=== PATIENT | male | born 1935 | race Caucasian/White ===

== ENCOUNTER 2017-10-18 16:48 | Inpatient (IN) | payer MEDICARE ==
[~2017-10-18] VITALS: Ht 170.2 cm; Wt 73.0 kg
[2017-10-19] MEDS ORDERED: DOCU-141 PO (13:16)
[2017-10-19] MEDS ORDERED: AMLO2.5T2 PO (13:16)
[2017-10-19] MEDS ORDERED: LISI40TA4 PO (13:16)
[2017-10-19] MEDS ORDERED: ACET-2154 PO (13:16)
[2017-10-19] MEDS ORDERED: GLIM2TAB2 PO (13:16)
[2017-10-19] MEDS ORDERED: LEVE500T9 PO (13:16)
[2017-10-19] MEDS ORDERED: BUPI5VIA IJ (13:16)
[2017-10-19] MEDS ORDERED: BACI30OI9 TP (13:16)
[2017-10-19] MEDS ORDERED: PRAV40TA PO (13:16)
[2017-10-19] MEDS: BLOOD SUGAR DIAGNOSTIC 1 EACH STRIP VI SCH ×3 (13:30→21:02)
[2017-10-19] MEDS ORDERED: Z GUARD REMEDY PASTE 57 GM TUBE TOP PRN (13:30)
[2017-10-19] MEDS ORDERED: DEXTROSE 50% 50 ML DISP.SYRIN IV PRN (13:30)
[2017-10-19 13:36] VITALS: BP 112/57
--- NOTE | 2017-10-19 14:33 | NUR ---
pt seen on admission. pt arrived from [facility] through ambulance. vitals assessed see glass etcher short term on interventions. received report from [facility]. pt signed all documentation including belongings list. no hearing aids upon admission. pt seen by md mabry. states he will continue all meds that were reconciled. pt assessed. pt is receptive to speech, alert and oriented x 3. pt showed signs of aphasia. neuro check done due to tbi. pt has rigid left arm. and weakness on both legs. incision site checked. no drainage noted. lisa intact. pictures taken and placed in chart. pt has sinus bradycadia but stable. pt has shallow breathes but tolerates room air. no edema nor redness back upon assessment. pt placed on ccho diet. mrsa swab done and placed in lab. will continue to monitor for complications.
--- NOTE | 2017-10-19 15:43 | NUR ---
md wants to continue all meds from [facility] med recon done and placed in chart. sent to pharmacy.
[2017-10-19] MEDS: INSULIN REGULAR, HUMAN 300 UNIT/3 ML VIAL SQ PRN ×2 (17:21→21:01)
[2017-10-19] MEDS ORDERED: ACETAMINOPHEN 325 MG TABLET PO PRN (18:00)
--- NOTE | 2017-10-19 18:48 | NUR ---
pt stable throughout the day. pt continue to be sleeping interminently throuhgout shift. neuro checks done to check if pt is having any changes neurologically. applied neosporin cream on head. pt given keppra and insulin per coverage. applied dvt pumps. will endorse to broach trouble shooter nurse.
[2017-10-19] MEDS: LEVETIRACETAM 500 MG TABLET PO SCH (18:56)
[2017-10-19] MEDS: BACITRACIN ZINC OINT 15 GM TUBE TP SCH (18:57)
--- NOTE | 2017-10-19 19:40 | NUR ---
Pt resting comfortably in bed. AAO x4. No acute distress noted. On room air and tolerating well, shallow breathing noted. No c/o SOB. No c/o pain or discomfort at this time. Right arm noted to be stronger than the left arm. Will perform neuro check. Safety measures maintained. Call light and personal belongings within reach. Will continue to monitor.
[2017-10-19] MEDS: DOCUSATE SODIUM 100 MG CAPSULE PO PRN (20:57)
[2017-10-19] MEDS: ATORVASTATIN 10 MG TABLET PO SCH (20:57)
[2017-10-19 21:38] VITALS: BP 129/55
--- NOTE | 2017-10-20 05:35 | NUR ---
Pt slept comfortably at night. VSS. Meds and insulin coverage given per MD's order. Pt compliant. Performed neuro check. No significant changes noted from baseline upon admission. All needs attended to promptly. Will endorse to day shift RN. Continue to monitor.
[2017-10-20] MEDS: BLOOD SUGAR DIAGNOSTIC 1 EACH STRIP VI SCH ×4 (06:49→20:47)
[2017-10-20 07:06] LABS: BASOPHILS % (AUTO) 0.4 % (0.0-2.0); EOSINOPHILS # (AUTO) 0.2 K/uL (0.0-0.7); EOSINOPHILS % (AUTO) 2.8 % (0.0-7.0); HEMATOCRIT 38.2 % (36.7-47.1); HEMOGLOBIN 12.8 g/dL (12.5-16.3); LYMPHOCYTES # (AUTO) 1.4 K/uL (20.0-40.0); LYMPHOCYTES % (AUTO) 21.8 % (20.5-51.5); MEAN CORPUSCULAR HEMOGLOBIN 29.6 uug (23.8-33.4); MEAN CORPUSCULAR HGB CONC 34 g/dL (32.5-36.3); MEAN CORPUSCULAR VOLUME 88.4 fL (73.0-96.2); MONOCYTES # (AUTO) 0.8 K/uL (2.0-10.0); MONOCYTES % (AUTO) 11.5 % (0.0-11.0); NEUTROPHILS # (AUTO) 4.2 K/uL (1.8-8.9); NEUTROPHILS % (AUTO) 63.5 % (38.5-71.5); PLATELET COUNT (AUTO) 117 K/uL (152-348); RED BLOOD CELL COUNT(AUTO) 4.33 MIL/uL (4.06-5.63); WHITE BLOOD COUNT (AUTO) 6.6 K/uL (3.6-10.2)
[2017-10-20 07:18] LABS: CARBON DIOXIDE 23 mmol/L (21-32); CHLORIDE 101 mmol/L (98-107); CHOLESTEROL 112 mg/dL (<200); GLUCOSE 126 mg/dL (74-106); HDL CHOLESTEROL 21 mg/dL (40-60); MAGNESIUM 1.6 mg/dL (1.8-2.4); PHOSPHOROUS 3.9 mg/dL (2.5-4.9); TRIGLYCERIDES 93 MG/DL (30-150); UREA NITROGEN, BLOOD 17 mg/dL (7-18)
[2017-10-20 07:30] VITALS: BP 103/56
[2017-10-20] MEDS: LISINOPRIL 20 MG TABLET PO SCH (08:21)
[2017-10-20] MEDS: LEVETIRACETAM 500 MG TABLET PO SCH ×2 (08:21→16:13)
[2017-10-20] MEDS: GLIMEPIRIDE 2 MG TABLET PO SCH (08:22)
[2017-10-20] MEDS: BACITRACIN ZINC OINT 15 GM TUBE TP SCH ×2 (08:22→16:13)
[2017-10-20] MEDS: AMLODIPINE 2.5 MG TABLET PO SCH (08:22)
[2017-10-20] MEDS: INSULIN REGULAR, HUMAN 300 UNIT/3 ML VIAL SQ PRN ×3 (08:23→20:49)
[2017-10-20] MEDS ORDERED: Medication Not On Formulary EA (Lisinopril 40 MG) PO SCH (09:00)
--- NOTE | 2017-10-20 10:03 | NUR ---
pt seen on rounding. pt continues to be alert and oriented x 3. pt continues to have aphasia and time to talk. pt able to walk with assist. lisa intact no signs of bleeding. no seizures seen during shift. pt able to take pills whole. will continue to monitor.
[2017-10-20] MEDS ORDERED: MAGNESIUM OXIDE 400 MG TABLET PO ONE (15:30)
--- NOTE | 2017-10-20 18:29 | NUR ---
pt given magnesium. no new orders. pt is more awake compared to yesterday. continues to swallow pills whole. will endorse to second shift supervisor nurse.
[2017-10-20 20:06] VITALS: BP 135/70
[2017-10-20] MEDS: ATORVASTATIN 10 MG TABLET PO SCH (20:46)
[2017-10-21] MEDS: BLOOD SUGAR DIAGNOSTIC 1 EACH STRIP VI SCH ×4 (06:40→20:10)
[2017-10-21 08:17] VITALS: BP 143/63
[2017-10-21] MEDS: LEVETIRACETAM 500 MG TABLET PO SCH ×2 (09:46→17:00)
[2017-10-21] MEDS: GLIMEPIRIDE 2 MG TABLET PO SCH (09:46)
[2017-10-21] MEDS: AMLODIPINE 2.5 MG TABLET PO SCH (09:47)
[2017-10-21] MEDS: BACITRACIN ZINC OINT 15 GM TUBE TP SCH ×2 (09:47→17:02)
[2017-10-21] MEDS: LISINOPRIL 20 MG TABLET PO SCH (09:47)
--- NOTE | 2017-10-21 10:00 | NUR ---
Received awake , alert/oriented x3, on RA, no sob noted, respiration even and unlabored, with lisa on right temporal lobe, dry and intact, no c/o pain noted, V/S stable. Patient ambulates with PT , no distress noted. Medication compliant and cooperative. Will continue to monitor for safety and needs.
[2017-10-21] MEDS: INSULIN REGULAR, HUMAN 300 UNIT/3 ML VIAL SQ PRN ×3 (12:03→20:15)
[2017-10-21 19:30] VITALS: BP 115/65
--- NOTE | 2017-10-21 19:35 | NUR ---
Pt resting comfortably in bed and watching TV. AAO x3. No acute distress noted. No c/o pain or discomfort. Pt has difficulty of hearing. Takes time to respond. Able to comprehend and make needs known. Cooperative. Safety measures maintained. Call light and personal belongings within reach. Will continue to monitor.
[2017-10-21] MEDS: ATORVASTATIN 10 MG TABLET PO SCH (20:10)
--- NOTE | 2017-10-21 22:54 | NUR ---
Pt's nephew, Baltazar, called confirming if his Uncle is here in the hospital. He stated pt's full name and date. Baltazar stated that he and his mom have been trying to get a hold of the pt for the past 4 days now and reported this concern to the police and was directed to call [facility] as they were able to track down pt's location here. No information was given to Baltazar but was asked to leave contact information if he wants. Pt later confirmed that Baltazar is his nephew and has been trying to contact them but unable to for some reason. Pt requested to contact Baltazar and was given permission to give information to his nephew.
--- NOTE | 2017-10-22 05:43 | NUR ---
Pt slept comfortably at night. VSS. Meds and insulin coverage given per MD's order. Compliant with plan of care. Had BM x1 in the morning yesterday as per pt. Pt is happy to be able to talk with family last night and that they might come today to visit him. Pt noted to be stuttering and family confirmed that it is a normal occurrence ever since. All needs attended to promptly. Will endorse to day shift RN. Continue to monitor.
[2017-10-22] MEDS: BLOOD SUGAR DIAGNOSTIC 1 EACH STRIP VI SCH ×4 (06:32→20:46)
[2017-10-22 08:24] VITALS: BP 122/69
[2017-10-22] MEDS: INSULIN REGULAR, HUMAN 300 UNIT/3 ML VIAL SQ PRN ×4 (08:34→20:48)
[2017-10-22] MEDS: BACITRACIN ZINC OINT 15 GM TUBE TP SCH ×2 (08:36→16:38)
[2017-10-22] MEDS: LISINOPRIL 20 MG TABLET PO SCH (08:36)
[2017-10-22] MEDS: AMLODIPINE 2.5 MG TABLET PO SCH (08:36)
[2017-10-22] MEDS: LEVETIRACETAM 500 MG TABLET PO SCH ×2 (08:36→16:37)
[2017-10-22] MEDS: GLIMEPIRIDE 2 MG TABLET PO SCH (08:36)
--- NOTE | 2017-10-22 15:05 | NUR ---
pt seen on rounding. pt continues to be alert and oriented x 4. pt remains baseline with speech and left arm weakness. pt seen by Neuro. states taht she wants aspirin be held for one week. pt neuro checks done and remained baseline. pt continues to have slow speech. pt able to walk contact guard with walking and sit to stand. incision site clean. no signs of infection. applied antibiotic. will continue to monitor.
--- NOTE | 2017-10-22 18:38 | NUR ---
pt stable throughout the day. applied cream on incision as ordered. pt was able to get up and walk to the restroom contact guard with walker. pt states that he had a bm yesterday at noon. pt more alert compared to previous days. will endorse to night shfit nurse.
--- NOTE | 2017-10-22 19:51 | NUR ---
Pt noted to be resting at this time, easily awaken by tactile and verbal stimuli. Noted to be verbally responsive with periods of aphasia. No respiratory distress noted at this time. No c/o pain. Call light within reach. Safety measures provided. Will continue to monitor.
[2017-10-22 20:15] VITALS: BP 122/66
[2017-10-22] MEDS: ATORVASTATIN 10 MG TABLET PO SCH (20:48)
--- NOTE | 2017-10-23 06:32 | NUR ---
Pt remains AAO x 3, responding well verbally with some pauses. Noted to have steady gait with assist. No distress noted at this time. Call light within reach.
[2017-10-23] MEDS: BLOOD SUGAR DIAGNOSTIC 1 EACH STRIP VI SCH ×4 (06:44→20:21)
[2017-10-23] MEDS: GLIMEPIRIDE 2 MG TABLET PO SCH (08:13)
[2017-10-23] MEDS: AMLODIPINE 2.5 MG TABLET PO SCH (08:13)
[2017-10-23] MEDS: LISINOPRIL 20 MG TABLET PO SCH (08:13)
[2017-10-23] MEDS: LEVETIRACETAM 500 MG TABLET PO SCH ×2 (08:13→16:07)
[2017-10-23] MEDS: INSULIN REGULAR, HUMAN 300 UNIT/3 ML VIAL SQ PRN ×4 (08:14→20:20)
[2017-10-23] MEDS: BACITRACIN ZINC OINT 15 GM TUBE TP SCH ×2 (08:14→16:07)
[2017-10-23 08:45] VITALS: BP_SYST 123; BP_SYST 156; BP_DIAS 60; BP_DIAS 86
--- NOTE | 2017-10-23 10:00 | NUR ---
pt seen on rounding. pt continues to be alert and oriented x 3. pt continues to have stuttering. pt nuero check. remains baseline. vitals stable. pt continues to have low pulse. pt swallows pills whole. will continue to monitor.
--- NOTE | 2017-10-23 18:29 | NUR ---
pt stable throughout the day. pt given insulin as ordered. no infection on incision site. pt able to have a bm. contact guard on walking and supervision on bed transfers. no new orders. will endorse to assembler 1st shift nurse.
[2017-10-23 20:14] VITALS: BP 133/74
[2017-10-23] MEDS: ATORVASTATIN 10 MG TABLET PO SCH (20:18)
--- NOTE | 2017-10-24 05:30 | NUR ---
Pt slept intermittently through the night and was easily awoken, pt denied having any pain or difficulty breathing, pt is able to ambulate with minimal assisted, pt is able perform his ADL's with stand by to minimal assistance. pt concerned about his elevated blood sugar levels, education given and nutrition consult ordered. all needs met, safety measures are in place, call light within reach, bed alarm is on.
[2017-10-24] MEDS: BLOOD SUGAR DIAGNOSTIC 1 EACH STRIP VI SCH ×4 (06:41→20:34)
[2017-10-24 07:44] VITALS: BP 122/67
[2017-10-24] MEDS: LISINOPRIL 20 MG TABLET PO SCH (08:50)
[2017-10-24] MEDS: AMLODIPINE 2.5 MG TABLET PO SCH (08:51)
[2017-10-24] MEDS: LEVETIRACETAM 500 MG TABLET PO SCH ×2 (08:51→16:42)
[2017-10-24] MEDS: GLIMEPIRIDE 2 MG TABLET PO SCH (08:51)
[2017-10-24] MEDS: BACITRACIN ZINC OINT 15 GM TUBE TP SCH ×2 (09:17→16:37)
[2017-10-24] MEDS: INSULIN REGULAR, HUMAN 300 UNIT/3 ML VIAL SQ PRN ×2 (11:40→20:36)
--- NOTE | 2017-10-24 17:28 | NUR ---
pt seen on rounding. pt continues to be stable continues to have bradycardia. no shallow breathing noted. pt had a shower and had shaved. pt had no infection on site,. applied cream. pt participated in therapy. pt had a bm. will continue to monitor.
--- NOTE | 2017-10-24 19:30 | NUR ---
Received patient from day shift nurse. Currently stable with no signs of pain, sob, or acute distress. Pertinent assessment completed. A/O x3 & noted with slurred speech & a delayed speech pattern. He is able to make needs known. Head incision is clean, dry, intact. No s/s of infection or swelling noted at site. Vital signs within range. Room checked for safety at start of shift. Bed in the low position & locked. Call light within reach. Will continue to monitor through shift.
[2017-10-24 20:34] VITALS: BP 110/61
[2017-10-24] MEDS: ATORVASTATIN 10 MG TABLET PO SCH (20:34)
--- NOTE | 2017-10-25 06:02 | NUR ---
Patient slept about 3 hours during the night. Patient stating that he usually cannot sleep. Will endorse to day shift nurse to inform MD. No acute distress noted. All needs attended to promptly. All meds administered per MD order. No s/s of hypoglycemia or hyperglycemia noted. Head incision is clean & dry, lisa intact. No s/s of infection or swelling noted at site. Safety measures implemented. Call light within reach. Will endorse to day shift RN.
[2017-10-25] MEDS: BLOOD SUGAR DIAGNOSTIC 1 EACH STRIP VI SCH ×4 (06:33→20:32)
[2017-10-25 07:00] VITALS: BP 130/76
[2017-10-25] MEDS: GLIMEPIRIDE 2 MG TABLET PO SCH (08:55)
[2017-10-25] MEDS: LEVETIRACETAM 500 MG TABLET PO SCH ×2 (08:55→17:21)
[2017-10-25] MEDS: AMLODIPINE 2.5 MG TABLET PO SCH (08:56)
[2017-10-25] MEDS: LISINOPRIL 20 MG TABLET PO SCH (08:56)
[2017-10-25] MEDS: BACITRACIN ZINC OINT 15 GM TUBE TP SCH ×2 (09:52→17:00)
--- NOTE | 2017-10-25 11:49 | NUR ---
SBAR report received, board updated. Pt assessed, denies any c/o pain and states feeling well. Compliant with all routine morning medications. Bed in locked and lowest position with side rails up x2. All comfort and safety needs met. Call light and personal belongings within reach. Family visiting at this time. Will continue to monitor.
[2017-10-25] MEDS: INSULIN REGULAR, HUMAN 300 UNIT/3 ML VIAL SQ PRN ×3 (12:29→20:36)
--- NOTE | 2017-10-25 13:55 | NUR ---
INTERDISCIPLINARY TEAM CONFERENCE
[2017-10-25 19:30] VITALS: BP 133/67
--- NOTE | 2017-10-25 19:30 | NUR ---
Patient currently sleeping at start of shift upon rounding. No acute distress noted. Vital signs within range. Head incision is clean, dry, intact. No s/s of infection or inflammation noted at site. Bed in low position & locked. Call light within reach. Will continue to monitor patient through out shift.
[2017-10-25] MEDS: ATORVASTATIN 10 MG TABLET PO SCH (20:33)
[2017-10-26] MEDS: BLOOD SUGAR DIAGNOSTIC 1 EACH STRIP VI SCH ×4 (06:32→20:21)
[2017-10-26 07:00] VITALS: BP 128/54
--- NOTE | 2017-10-26 07:20 | NUR ---
RECEIVED REPORT FROM SUPERVISOR CORE SHOP NURSE, PATIENT IN BED AWAKE, COMPLAINING ABOUT THE ROOM MATE TAKING TOO MUCH SPACE IN THE ROOM, PATIENT WAS REASSURED THAT HE WILL GET EQUAL SPACE, AND PATIENTS ANXIETY WAS EASED. BED IN LOW POSITION, SIDE RAILS UP X2. PATIENTS WOUND IS DRY AND INTACT, NO BLEEDING.
--- NOTE | 2017-10-26 07:20 | NUR ---
RECEIVED REPORT FROM CORRECTIONAL PROBATION OFFICER NURSE, PATIENT IN BED AWAKE, NO EVIDENCE OF DISTRESS NOTED, BED IN LOW POSITION, SIDE RAILS UP X2. Addendum: 10/26/17 at 1839 by SANJAY SNIDER RN DISREGARD, WRONG PATIENT NOTE
[2017-10-26] MEDS: GLIMEPIRIDE 2 MG TABLET PO SCH (08:32)
[2017-10-26] MEDS: LISINOPRIL 20 MG TABLET PO SCH (08:33)
[2017-10-26] MEDS: AMLODIPINE 2.5 MG TABLET PO SCH (08:33)
[2017-10-26] MEDS: LEVETIRACETAM 500 MG TABLET PO SCH ×2 (08:33→17:16)
[2017-10-26] MEDS: BACITRACIN ZINC OINT 15 GM TUBE TP SCH ×2 (08:34→17:16)
--- NOTE | 2017-10-26 10:00 | NUR ---
PATIENT REQUESTED TO AMBULATE WITH ASSISTANCE, PATIENT WALKED AROUND UNIT WITH WALKER AND OXYGEN TANK WITH SUPERVISION. PATIENT STOPPED TWICE TO SIT DOWN AND REST. PATIENT WAS CHECKED FOR OXYGEN SATURATION, 92% ON 1.5 LITERS. Addendum: 10/26/17 at 1834 by SANJAY SNIDER RN WRONG PATIENT NOTE PLEASE DISREGARD
[2017-10-26] MEDS: INSULIN REGULAR, HUMAN 300 UNIT/3 ML VIAL SQ PRN ×3 (12:29→20:26)
--- NOTE | 2017-10-26 18:34 | NUR ---
PATIENT HAS BEEN COOPERATIVE WITH CARE, NO SIGNS OF DISTRESS AT THIS TIME, BED IN LOW POSITION, SIDE RAILS UP X2. PATIENT AMBULATING WITH WALKER, AND SUPERVISION. ALL NEEDS MET.
[2017-10-26 19:30] VITALS: BP 125/63
--- NOTE | 2017-10-26 19:49 | NUR ---
Received pt in bed, AAO x 4 watching television. No acute distress noted. Denies pain or discomfort at this time. Verbally responsive and able to make needs known. All safety measures and fall precautions maintained. Call light and all personal belongings within reach. Will continue to monitor.
[2017-10-26] MEDS: ATORVASTATIN 10 MG TABLET PO SCH (20:26)
[2017-10-27] MEDS: BLOOD SUGAR DIAGNOSTIC 1 EACH STRIP VI SCH ×4 (06:38→20:34)
--- NOTE | 2017-10-27 07:06 | NUR ---
Received report from night shift supervisor nurse, patient in bed awake, reports getting a good night's sleep, no evidence of distress noted at this time, bed in low position, side rails up x2.
[2017-10-27 08:00] VITALS: BP 121/52
[2017-10-27] MEDS: LEVETIRACETAM 500 MG TABLET PO SCH ×2 (08:17→16:39)
[2017-10-27] MEDS: AMLODIPINE 2.5 MG TABLET PO SCH (08:17)
[2017-10-27] MEDS: GLIMEPIRIDE 2 MG TABLET PO SCH (08:17)
[2017-10-27] MEDS: LISINOPRIL 20 MG TABLET PO SCH (08:18)
[2017-10-27] MEDS: BACITRACIN ZINC OINT 15 GM TUBE TP SCH ×2 (08:29→16:39)
[2017-10-27] MEDS: INSULIN REGULAR, HUMAN 300 UNIT/3 ML VIAL SQ PRN ×3 (11:59→20:43)
--- NOTE | 2017-10-27 18:24 | NUR ---
Patient has been cooperative with care, took a shower and tolerated it without distress. Currently patient is in bed, no distress noted, bed in low position, side rails up x2.
[2017-10-27 19:30] VITALS: BP 119/62
--- NOTE | 2017-10-27 19:30 | NUR ---
PT IN ROOM ALERT AWAKE IN NO ACUTE DISTRESS. ABLE TO MAKE NEEDS KNOWN AND REQUESTING CHOCOLATE. PT REMINDED TO AVOID INCREASING AMOUNT OF SWEETS D/T BLOOD SUGAR READINGS. V/S ARE WNL. JUAN CARLOS NOTED INTACT TO SCALP. NO ACTIVE BLEEDING OR S/S OF INFECTION. ENCOURAGED PT TO USE WALKER WITH BRP. CONTINUE TO MONITOR. CALL LIGHT PLACED WITHIN REACH.
[2017-10-27] MEDS: ATORVASTATIN 10 MG TABLET PO SCH (20:33)
--- NOTE | 2017-10-28 06:00 | NUR ---
PT IN ROOM ALERT AWAKE IN NO ACUTE DISTRESS. NO S/S OF HYPER/HYPOGLYCEMIA NOTED. DENIES ANY PAIN, DISCOMFORT OR SOB. ABLE TO MAKE NEEDS KNOWN. NO ACTIVE BLEEDING OR DRAINAGE ON AFFECTED SCALP. JUAN CARLOS INTACT. NO FEVER OR CHILLS PRESENT. CONTINUE TO MONITOR. REMINDED PT TO USE WALKER FOR BRP. CALL LIGHT PLACED WITHIN REACH.
[2017-10-28] MEDS: GLIMEPIRIDE 2 MG TABLET PO SCH (06:30)
[2017-10-28] MEDS: BLOOD SUGAR DIAGNOSTIC 1 EACH STRIP VI SCH ×4 (06:31→21:42)
[2017-10-28] MEDS: LEVETIRACETAM 500 MG TABLET PO SCH ×2 (08:10→16:32)
[2017-10-28] MEDS: LISINOPRIL 20 MG TABLET PO SCH (08:10)
[2017-10-28] MEDS: AMLODIPINE 2.5 MG TABLET PO SCH (08:10)
[2017-10-28] MEDS: BACITRACIN ZINC OINT 15 GM TUBE TP SCH ×2 (08:11→16:36)
[2017-10-28] MEDS: DOCUSATE SODIUM 100 MG CAPSULE PO PRN (08:11)
[2017-10-28] MEDS: INSULIN REGULAR, HUMAN 300 UNIT/3 ML VIAL SQ PRN ×4 (08:11→21:43)
[2017-10-28 08:27] VITALS: BP 110/62
--- NOTE | 2017-10-28 08:56 | NUR ---
pt seen on rounding. pt vitals stable. pt given meds whole. applied neosporin cream on head. no signs of infection. pt will participate in therapy. will continue to monitor.
--- NOTE | 2017-10-28 18:55 | NUR ---
pt continues to be stable throuhgout the day. pt incision site intact. no signs of infection. pt had a bm and voided. pt participated in hterapy. pt continues to be min assist on walking but contact guard on sit to stand. will endorse to rn night nurse.
--- NOTE | 2017-10-28 19:28 | NUR ---
PT IN ROOM ALERT AWAKE IN NO ACUTE DISTRESS. ABLE TO FOLLOW SIMPLE COMMANDS. SPEECH CLEAR BUT SLOW TO SPEAK. NO ACTIVE BLEEDING OR DRAINAGE NOTED TO WOUND ON SCALP. SITE INTACT WITH JUAN CARLOS OPEN TO AIR. REMINDED PT TO ASK FOR ASSISTANCE WHEN NEEDED AND TO USE WALKER WHEN USING RESTROOM. ENCOURAGED DEEP BREATHING EXERCISES. CALL LIGHT PLACED WITHIN REACH. CONTINUE TO MONITOR. Addendum: 10/28/17 at 2208 by JESSICA GARZA RN wrong user id
[2017-10-28] MEDS: ATORVASTATIN 10 MG TABLET PO SCH (21:42)
[2017-10-28 21:47] VITALS: BP 100/63
--- NOTE | 2017-10-29 05:50 | NUR ---
PT IN ROOM ABLE TO SLEEP THROUGHOUT NIGHT WITHOUT DIFFICULTY. NO ACTIVE BLEEDING OR S/S OF INFECTION NOTED TO CURRENT WOUND ON SCALP. SPEECH IS CLEAR AND ABLE TO MAKE NEEDS KNOWN. CALL LIGHT WITHIN REACH. REMINDED PT TO USE WALKER DURING BRP. CONTINUE TO MONITOR. DENIES ANY PAIN OR SOB AT THIS TIME.
[2017-10-29] MEDS: GLIMEPIRIDE 2 MG TABLET PO SCH ×2 (06:30→08:33)
[2017-10-29] MEDS: BLOOD SUGAR DIAGNOSTIC 1 EACH STRIP VI SCH ×4 (06:30→21:00)
[2017-10-29 07:59] VITALS: BP 117/71
[2017-10-29] MEDS: LISINOPRIL 20 MG TABLET PO SCH (08:33)
[2017-10-29] MEDS: AMLODIPINE 2.5 MG TABLET PO SCH (08:33)
[2017-10-29] MEDS: LEVETIRACETAM 500 MG TABLET PO SCH ×2 (08:33→16:45)
[2017-10-29] MEDS: BACITRACIN ZINC OINT 15 GM TUBE TP SCH ×2 (08:34→16:45)
[2017-10-29] MEDS: INSULIN REGULAR, HUMAN 300 UNIT/3 ML VIAL SQ PRN ×3 (11:24→21:01)
--- NOTE | 2017-10-29 17:26 | NUR ---
pt stable throughout the day. pt incision intact. no infection noted. pt had bm today and voided. min assist. no seizures noted. will endorse to shift production supervisor nurse.
--- NOTE | 2017-10-29 19:30 | NUR ---
Patient currently sitting in bed comfortably with no signs of pain, sob, or acute distress. Pertinent assessment completed. Head incision is clean, dry, intact. No s/s of infection or swelling noted at the site. Vital signs within range. Bed in low position & locked. Call light within reach. Will continue to monitor through shift.
[2017-10-29] MEDS: ATORVASTATIN 10 MG TABLET PO SCH (21:01)
[2017-10-29 21:11] VITALS: BP 131/63
[2017-10-30] MEDS: BLOOD SUGAR DIAGNOSTIC 1 EACH STRIP VI SCH ×4 (06:32→20:31)
--- NOTE | 2017-10-30 06:47 | NUR ---
Blood sugar check this AM 110. No insulin coverage needed. Patient stable through shift. No acute distress noted. Patient was able to sleep well through the shift. All needs attended to promptly. All meds administered as ordered per MD. Safety measures implemented. Call light within reach. Will endorse to day shift nurse.
[2017-10-30 09:09] VITALS: BP 119/51
[2017-10-30] MEDS: AMLODIPINE 2.5 MG TABLET PO SCH (09:23)
[2017-10-30] MEDS: LEVETIRACETAM 500 MG TABLET PO SCH ×2 (09:23→18:03)
[2017-10-30] MEDS: BACITRACIN ZINC OINT 15 GM TUBE TP SCH ×2 (09:29→18:03)
[2017-10-30] MEDS: LISINOPRIL 20 MG TABLET PO SCH (09:29)
[2017-10-30] MEDS: INSULIN REGULAR, HUMAN 300 UNIT/3 ML VIAL SQ PRN ×3 (12:32→20:33)
[2017-10-30 19:30] VITALS: BP 120/55
--- NOTE | 2017-10-30 19:30 | NUR ---
Patient currently lying in bed comfortably with no acute distress noted. patient is A/O x3-4 with no signs of pain or SOB. Pertinent assessment completed. Head incision has lisa that are clean, dry, and intact. No s/s of redness or inflammation noted at surgical site. Vital signs within range at start of shift. Room checked for safety. Provided a clutter-free environment for patient. Bed in low position & locked. Call light within reach. Will continue to monitor patient through shift.
[2017-10-30] MEDS: ATORVASTATIN 10 MG TABLET PO SCH (20:31)
--- NOTE | 2017-10-30 20:31 | NUR ---
Patient noted with high blood sugar at 278. Patient is asymptomatic with no acute distress noted. Administered 6 units of insulin per MD order and sliding scale. patient is stating that he is noticing bread & rice on his meal trays & thinks that this is causing his BS to be high. Will f/u with dietary and indorse to day shift nurse to speak with dietary in the AM. Will continue to monitor patient.
[2017-10-31] MEDS: BLOOD SUGAR DIAGNOSTIC 1 EACH STRIP VI SCH ×4 (06:33→20:27)
--- NOTE | 2017-10-31 06:38 | NUR ---
Blood sugar this AM at 116. No insulin coverage needed. no acute distress noted during shift. All needs attended to. Kept clean & dry. patient was able to ambulate independently to restroom via walker. All medications administered as per MD order. Safety measures implemented. patient showed no s/s of hyperglycemia or hypoglycemia. Call light within reach. Will endorse to day shift nurse.
--- NOTE | 2017-10-31 07:45 | NUR ---
RECIEVED PT LYING IN BED, SOUND ASLEEP BUT [place]OU[place]ALE TO NAME. VERY PLEASANT. ORIENTEDX3. SPEECH IS OCCASSIONALY DELAYED OR AT TIMES STUTTERING. DENIES ANY HEADACHE, DIZZINESS OR BLURY VISION. HEAD POST OP INCISSION IS CD&I. WITH JUAN CARLOS IN PLACE AND INTACT. NO BLEEDING NOTED. FACE IS SYMMETRICAL, ALL EXTREMETIES ARE ABLE TO MOVE, BRP PRIVILEDGES, AMBULATES USING A WALKER.
[2017-10-31 08:33] VITALS: BP 127/74
[2017-10-31] MEDS: GLIMEPIRIDE 2 MG TABLET PO SCH (08:59)
[2017-10-31] MEDS: LEVETIRACETAM 500 MG TABLET PO SCH ×2 (08:59→16:49)
[2017-10-31] MEDS: LISINOPRIL 20 MG TABLET PO SCH (09:00)
[2017-10-31] MEDS: AMLODIPINE 2.5 MG TABLET PO SCH (09:01)
[2017-10-31] MEDS: BACITRACIN ZINC OINT 15 GM TUBE TP SCH ×2 (09:01→16:50)
[2017-10-31 10:19] LABS: BASOPHILS # (AUTO) 0.1 K/uL (0.0-8.0); BASOPHILS % (AUTO) 0.9 % (0.0-2.0); EOSINOPHILS # (AUTO) 0.2 K/uL (0.0-0.7); EOSINOPHILS % (AUTO) 3.6 % (0.0-7.0); HEMATOCRIT 41.7 % (36.7-47.1); HEMOGLOBIN 14.3 g/dL (12.5-16.3); LYMPHOCYTES # (AUTO) 1.5 K/uL (20.0-40.0); MEAN CORPUSCULAR HEMOGLOBIN 30.2 uug (23.8-33.4); MEAN CORPUSCULAR HGB CONC 34 g/dL (32.5-36.3); MEAN CORPUSCULAR VOLUME 88.3 fL (73.0-96.2); MONOCYTES # (AUTO) 0.5 K/uL (2.0-10.0); MONOCYTES % (AUTO) 7.9 % (0.0-11.0); NEUTROPHILS # (AUTO) 4.3 K/uL (1.8-8.9); NEUTROPHILS % (AUTO) 64.6 % (38.5-71.5); RED BLOOD CELL COUNT(AUTO) 4.72 MIL/uL (4.06-5.63); WHITE BLOOD COUNT (AUTO) 6.7 K/uL (3.6-10.2)
[2017-10-31 10:38] LABS: PLATELET COUNT (AUTO) 177 K/uL (152-348)
[2017-10-31 10:52] LABS: ALANINE AMINOTRANSFERASE 62 U/L (16-63); ALKALINE PHOSPHATASE 180 U/L (50-136); ASPARTATE AMINOTRANSFERASE 59 U/L (15-37); BILIRUBIN,TOTAL 0.9 mg/dL (0.2-1.0); CARBON DIOXIDE 26 mmol/L (21-32); CHLORIDE 104 mmol/L (98-107); CREATININE 1.2 mg/dL (0.6-1.3); GLUCOSE 170 mg/dL (74-106); MAGNESIUM 1.7 mg/dL (1.8-2.4); PHOSPHOROUS 3.9 mg/dL (2.5-4.9); POTASSIUM 4.5 mmol/L (3.5-5.1); TOTAL PROTEIN, SERUM 8.3 g/dL (6.4-8.2); UREA NITROGEN, BLOOD 18 mg/dL (7-18)
[2017-10-31] MEDS: INSULIN REGULAR, HUMAN 300 UNIT/3 ML VIAL SQ PRN ×2 (12:02→20:31)
--- NOTE | 2017-10-31 15:00 | NUR ---
OYSTER FISHERMAN CAME IN AND DID SOME DIABETIC TEACHING AND EDUCATION TO PT. HE HAS A GOOD UNDERSTANDING.
[2017-10-31 19:30] VITALS: BP 117/60
--- NOTE | 2017-10-31 19:30 | NUR ---
Patient currently sleeping at start of shift. No acute distress noted. Pertinent assessment completed. Vital signs within range. Head incision is clean, dry, intact with lisa. No signs of infection or inflammation noted at the surgical site. Call light within reach of patient. Will continue to monitor through shift.
[2017-10-31] MEDS: ATORVASTATIN 10 MG TABLET PO SCH (20:27)
[2017-11-01] MEDS: BLOOD SUGAR DIAGNOSTIC 1 EACH STRIP VI SCH ×2 (06:31→12:12)
--- NOTE | 2017-11-01 06:32 | NUR ---
Blood sugar this AM is 107. No coverage needed. Patient slept well through the night. No acute distress noted. All needs attended to. Medications administered per MD order. Patient compliant & cooperative with care. No s/s of hyperglycemia or hypoglycemia noted. Safety measures implemented. Call light kept within reach of patient. Will endorse to day shift nurse.
[2017-11-01 08:00] VITALS: BP 120/55
[2017-11-01 08:11] VITALS: BP 120/55
[2017-11-01] MEDS: AMLODIPINE 2.5 MG TABLET PO SCH (08:11)
[2017-11-01] MEDS: LEVETIRACETAM 500 MG TABLET PO SCH (08:11)
[2017-11-01] MEDS: GLIMEPIRIDE 2 MG TABLET PO SCH (08:11)
[2017-11-01] MEDS: LISINOPRIL 20 MG TABLET PO SCH (08:11)
[2017-11-01] MEDS: BACITRACIN ZINC OINT 15 GM TUBE TP SCH (09:58)
--- NOTE | 2017-11-01 10:01 | NUR ---
SBAR report received, board updated. Pt assessed,no acute distress or pain noted. Pt compliant with routinely scheduled medication administration. Pt sat up for breakfast. Plan of care for today discussed, including anticipated D/C. Bed in locked and lowest position, with side rails up x2. Call light placed within reach. All safety and comfort needs met at this time. Will continue to monitor.
--- NOTE | 2017-11-01 10:16 | NUR ---
Accounts Payable Assistant Bio: Custom Marine Canvas Fabricator met pt at bedside to assess for needs and provide support. Pt is an 82-year-old male. Per chart, the patient suffered a fall, hitting his head to the ground on 2016. He was advised to obtain head CT; however he declined. He fell again on 10/13/2017 in the bathroom and had difficulty to get up due to lower extremity weakness. Later he presented to ER, where head CT was obtained, which revealed right SDH. He subsequently underwent craniotomy with evacuation of hematoma on 10/16/17. He was transferred to ARU due to weakness, functional impairment and gait dysfunction. Mental Status: Pt appeared alert and oriented x4 during interview. He presented in a frustrated and anxious mood stating that he is worried about his long-term care insurance. Patient has been in the hospital since October 19, 2017. Pt stated that since he has entered the hospital, his hearing has gone bad, and his [id number] suggested getting a self-help button. Patient appears to be coping well with PT and OT. Social: Pt stated that he is very close with his brother and his [id number]. His brother lives at the [facility] the [facility] the [employer]. Pt stated he visits frequently, but since he has been unable to, he would like to call him. Goals: Pt wants to know when his manager long term care medical insurance ([employer]) will pay for his current hospital stay. Pt is also worried that they will kick him off his insurance because he is not home to pay his bill. Pt would like help reaching out to his brother because the main telephone line isn't working at the living facility. Pt would like resources/referrals when he returns home because he needs help with shopping, taking out the trash, and caregiving. Interventions: JEET engaged in active listening. Per pt's request, SW called his dentist to cancel his appointment. SW also provided patient with contact information for his Long-term Care Insurance. SW provided emotional support and counseling. SW will provide patient with caregiving referrals upon discharge. SW will encourage pt to comply with rehab goals.
[2017-11-01] MEDS: INSULIN REGULAR, HUMAN 300 UNIT/3 ML VIAL SQ PRN (12:16)
--- NOTE | 2017-11-01 15:24 | NUR ---
Discharge order received. Discharge paperwork, Pt education material, and Rx reviewed, signed, and copies placed in chart. V/S taken to be 117/56, 58, 97.7, 18, and 97% Pt reports no pain or SOB. Home healthcare agency contacted regarding clarification of care. All discharge needs attended to. Incisional wound pictures taken and placed in chart. ID band removed and Pt safely escorted out of hospital via ambulance. Will remove from system shortly.
== END 2017-11-01 17:00 | disposition home health service (06) | DRG 950 ==
PROVIDERS: ADMIT Physical Medicine & Rehabilitation Pain Medicine; ATTEND Physical Medicine & Rehabilitation Pain Medicine
DX: S06.5X9D Traumatic subdural hemorrhage with loss of consciousness of unspecified duration, subsequent encounter (principal); E11.9 Type 2 diabetes mellitus without complications; K76.0 Fatty (change of) liver, not elsewhere classified; E78.5 Hyperlipidemia, unspecified; I10 Essential (primary) hypertension; W19.XXXD Unspecified fall, subsequent encounter; R47.81 Slurred speech; H91.90 Unspecified hearing loss, unspecified ear; Z86.010 Personal history of colon polyps; Z90.79 Acquired absence of other genital organ(s); R26.81 Unsteadiness on feet; R29.6 Repeated falls; Z91.81 History of falling; Z88.0 Allergy status to penicillin; Z91.041 Radiographic dye allergy status
CPT/HCPCS: 36415; 70030-TC; 83735; 84100; 85025; 92523; 97110; 97112; 97116; 97165; 97530; 97535; A4663; J1815